=== PATIENT | male | born 1985 | race Two or more races ===

== ENCOUNTER 2023-05-28 17:09 | Emergency (ER) | payer SELFPAY ==
[~2023-05-28] VITALS: Ht 160 cm; Wt 80.3 kg
[2023-05-28 19:01] VITALS: BP 122/73; PULSE 79; RESP 17; TEMP 98.5; O2SAT 99
[2023-05-28] MEDS ORDERED: KETOROLAC TROMETH 30 MG/ML 1ML VIAL IM ONE (19:15)
== END 2023-05-28 21:24 | disposition home or self-care (01) ==
LOC: ER 17:09
DX: R07.89 Other chest pain (principal); V86.55XA Driver of 3- or 4- wheeled all-terrain vehicle (ATV) injured in nontraffic accident, initial encounter; Y93.89 Activity, other specified; Y92.89 Other specified places as the place of occurrence of the external cause; Y99.8 Other external cause status
CPT/HCPCS: 71045; 96372; 99283; J1885